=== PATIENT | female | born 1990 | race Two or more races ===

== ENCOUNTER 2023-05-11 17:35 | Emergency (ER) | payer MEDICAID ==
[~2023-05-11] VITALS: Ht 157.5 cm; Wt 83.0 kg
[2023-05-11 17:50] VITALS: BP 116/74; TEMP 98.9; O2SAT 99
[2023-05-11 19:23] LABS: PREGNANCY TEST URINE QUAL NEGATIVE (NEGATIVE)
[2023-05-11] MEDS ORDERED: GUAIFENESIN/CODEINE 10 ML UDC ONE (20:02)
[2023-05-11] MEDS ORDERED: IBUPROFEN 600 MG TABLET ONE (20:03)
[2023-05-11] MEDS ORDERED: GUAIFENESIN/D-METHORPHAN HB 5 ML UDC ONE (20:07)
[2023-05-11] MEDS: GUAIFENESIN/D-METHORPHAN HB 5 ML UDC PO ONE (20:08)
[2023-05-11] MEDS: IBUPROFEN 600 MG TABLET PO ONE (20:08)
== END 2023-05-11 20:53 | disposition home or self-care (01) ==
LOC: ER 17:42
DX: U07.1 COVID-19 (principal)
CPT/HCPCS: 71045-TC; 84703-TC; 86403-TC; 87070-TC

== ENCOUNTER 2023-09-11 10:58 | Emergency (ER) | payer MEDICAID, OTHER ==
[~2023-09-11] VITALS: Ht 162.6 cm; Wt 91.6 kg
[2023-09-11 11:20] VITALS: BP 118/67; TEMP 98; O2SAT 98
[2023-09-11] MEDS ORDERED: KETOROLAC TROMETHAMINE 15 MG/ML VIAL ONE (11:47)
[2023-09-11] MEDS: KETOROLAC TROMETHAMINE 15 MG/ML VIAL IM ONE (11:53)
[2023-09-11] MEDS ORDERED: IBUP-1955 PO (13:44)
== END 2023-09-11 13:55 | disposition home or self-care (01) ==
LOC: ER 11:16
DX: S56.911A Strain of unspecified muscles, fascia and tendons at forearm level, right arm, initial encounter (principal); X50.3XXA Overexertion from repetitive movements, initial encounter; Y93.89 Activity, other specified; Y92.89 Other specified places as the place of occurrence of the external cause; Y99.8 Other external cause status
CPT/HCPCS: 99284; 96372; 73090; 73110; J1885